=== PATIENT | male | born 1945 | race Caucasian/White ===

== ENCOUNTER 2018-01-08 18:10 | Emergency (ER) | payer BC ==
[2018-01-08 18:35] VITALS: TEMP 98.1
[2018-01-08] MEDS ORDERED: GLUCAGON HYDROCHLORIDE 1 MG PDS IV ONE (18:46)
[2018-01-08] MEDS ORDERED: GLUCAGON HYDROCHLORIDE 1 MG PDS ONE (18:54)
[2018-01-08 19:37] VITALS: BP 159/93; PULSE 89; RESP 20; O2SAT 95
== END 2018-01-08 19:34 | disposition home or self-care (01) ==
LOC: ED 18:10
DX: K22.2 Esophageal obstruction (principal)
CPT/HCPCS: 71046; 96374; 99283; J1610